=== PATIENT | female | born 1995 | race Caucasian/White ===

== ENCOUNTER 2021-04-26 15:36 | Inpatient (IN) ==
--- NOTE | 2021-04-26 15:57 | ED Telehealth Note ---
Telehealth Telehealth Options: 2-way audio and video For the duration of the visit, provider was performing the assessment from: A different facility than the patient After establishing a telemedicine visit, patient was: Patient was verified with two unique identifiers, Patient/authorized rep acknowledged consent and understanding and Gave permission to continue telehealth session Total Time Spent (minutes): 9 Impression & Plan Crohn's disease, Dehydration, Lightheadedness Note/Exam/Outcome Date of Service April 26, 2021 HPI: This is a pleasant 26-year-old female who requested evaluation via telehealth with concern for dehydration. Patient states she has been dealing with a flare of her Crohn's disease for the past 3 weeks, has been having a lot of difficulty eating and drinking and is having numerous episodes of diarrhea. The diarrhea is bloody. She is not having fevers currently. She states that she has lost 11 pounds in the past 3 weeks because of this. She does note that she has seen her GI specialist several times and has been treated with steroids for the past week without any improvement. She notes that they checked a calprotectin level today and reports that it was 2540. She did see her GI specialist this morning who told her if she felt any worse that she should return to the emergency department. She does note that she is scheduled to have a colonoscopy this Thursday in the morning, but she is not sure that she will be able to tolerate the prep for this due to how ill she is feeling. She does note that she was seen in the emergency department a few days ago and received IV fluids and IV steroids and also had CT imaging performed at that time. ED Telehealth Outcome Referred to ED for in person visit ED Visit Note This pleasant 26-year-old female requested evaluation via telehealth with concern for dehydration from a Crohn's flare. After discussing with her, it was clear that she would need to return to the emergency department to receive IV fluids and will most likely need to be admitted. The patient states that her boyfriend will bring her in shortly and she was agreeable with this. I did speak on the phone with Tk Jerry, the patient's GI specialist, who did recommend having the patient come in and be admitted. She feels the patient would benefit from treatment with IV steroids for a few days as well as IV hydration. She recommended IV Solu-Medrol 20 mg 3 times a day, clear liquid diet, and IV fluids for hydration. The patient can be evaluated Thursday morning by the primary GI team to determine if she needs colonoscopy. She also recommended repeat C. difficile and stool studies. General General: + awake, + alert and + tired Respiratory Respiratory: + normal respiratory effort Past Med/Surg History Medical History Crohn's disease Surgical History History of colonoscopy History of esophagogastroduodenoscopy (EGD) History of wisdom tooth extraction Family History Grandfather (Maternal) Diabetes Aunt Breast cancer Grandfather (Paternal) Myocardial infarction Grandmother (Paternal) Myocardial infarction Other No family history of adverse response to anesthesia Denies family history of Ovarian cancer Prostate cancer Colorectal cancer Social History Smoking Status: Never smoker Second Hand Exposure: No; Hx Alcohol Use: Yes Hx Substance Use: No Preferred Language: Icelandic Communication Ability: Effective Ice Cream Chef Required: No Beliefs That Will Affect Care: None Current Living Situation: Significant Other Feels Safe at Home: Yes Assistive Devices: None Allergies Allergies Allergy/AdvReac Type Severity Reaction Status Date / Time No Known Allergies Allergy Verified 04/22/21 15:03 Home Meds Home Medications Medication Instructions Recorded Confirmed infliximab-dyyb 100 mg intravenous 100 mg IV UD 09/26/20 04/22/21 solution (Inflectra) Discharge Plan Visit Data Chief Complaint: Telehealth ED Provider: David Stover ED Midlevel Provider: Lena Arenas Discharge Problem: Crohn's disease, Dehydration, Lightheadedness Forms Stand Alone Forms: My [employer] Prescriptions Prescriptions: No Action Inflectra 100 mg Recon Soln 100 mg IV UD RF: 0 Referrals Referrals: Stella Golden PA-C [Primary Care Provider] - Discharge Problem: Crohn's disease Qualifiers: Gastrointestinal tract location: unspecified location Digestive disease complication type: unspecified complication Qualified Code(s): K50.919 - Crohn's disease, unspecified, with unspecified complications
[2021-04-26] MEDS ORDERED: SODIUM CHLORIDE 0.9% 1000ML 1,000 ML IV SCH (17:00)
--- NOTE | 2021-04-26 17:31 | Emergency Department Note ---
Impression & Plan Crohn's disease, Dehydration, Lightheadedness, Bloody diarrhea ED Provider Note CHIEF COMPLAINT: Lightheaded, dehydrated, Crohn's flare HISTORY OF PRESENTING ILLNESS: This is a 26-year-old female who presents to the emergency department by private vehicle with complaint of feeling lightheaded and dehydrated due to poor oral intake and diarrhea from a Crohn's flare that has been ongoing for the past 3 weeks. I did evaluate the patient over telehealth and advised her to come to the ER. I also spoke with Tk Jerry with GI who felt the patient warranted admission at this point. Patient has been having bloody diarrhea for 1.5 weeks and has been unimproved after a week of oral steroid treatment. She states that the past few days she has been feeling worse, she is having anywhere from 20-25 episodes of bloody diarrhea per day and is having difficulty tolerating even fluids and feels that she has become very dehydrated and weak. She states she feels very lightheaded and thinks she will pass out when she stands up. She denies a fever or chills. She has had mild abdominal cramping that gets worse right before she has a bowel movement, she currently rates her pain a 3/10. REVIEW OF SYSTEMS: A complete 10 point review of systems was reviewed with the patient with pertinent positives and negatives as per history of present illness. All else were negative. PAST MEDICAL HISTORY: Crohn's disease, history of wisdom tooth extraction SOCIAL HISTORY: Lives at home, she denies tobacco use ALLERGIES: No known allergies PHYSICAL EXAM: CONSTITUTIONAL: Pleasant and cooperative. Nontoxic-appearing and in no acute distress. Appears dehydrated. HEENT: Normocephalic, atraumatic. NECK: Supple, full active range of motion without discomfort. RESPIRATORY: Clear to auscultation bilaterally with no wheezing, crackles, rhonchi or stridor. Equal expansion bilaterally. CARDIOVASCULAR: Regular rate and rhythm with no murmurs, rubs or gallops. Normal peripheral perfusion. No edema. GASTROINTESTINAL: Mild tenderness to palpation throughout the lower abdomen, most tender in the left lower abdomen, no rebound tenderness or guarding. Abdomen is soft, nondistended. No palpable masses or HSM. Bowel sounds present in all quadrants. No CVA tenderness bilaterally. MUSCULOSKELETAL: Full range of motion of all joints without discomfort. INTEGUMENTARY: No rash or other significant dermatologic conditions noted. NEUROLOGIC: Alert and oriented X 4 with normal affect. Normal strength and sensation in all 4 extremities. Normal speech. Normal gait observed. ED COURSE AND MEDICAL DECISION MAKING: CC: Patient presenting with complaint of dehydration, Crohn's flare DIFFERENTIAL DIAGNOSIS: Includes, but not limited to dehydration, anemia, electrolyte abnormality, Crohn's flare, failure of outpatient treatment, infectious colitis, C. difficile infection, gastroenteritis, among others. INTERPRETATION OF LABS: Mild leukocytosis, no anemia, slightly elevated platelets, neutrophilia on differential, no significant electrolyte abnormalities, normal renal function, normal liver enzymes. UA and stool studies are still pending. MEDICATION RECONCILIATION: I attest that I have personally reviewed the patient's current medication list. INITIAL VITAL SIGNS REVIEW: I reviewed the patient's initial vital signs and interpret them as follows: T: Afebrile; BP: Normotensive; HR: Mildly tachycardic; RR: Within normal limits; Pulse Ox: Within normal limits on room air. MDM SUMMARY: Patient was evaluated from the waiting room in triage room 3 due to a time of hi gh volume and acuity and long wait times. The patient was evaluated in a wheelchair, history and physical exam performed. Patient is alert and oriented, in no acute distress and nontoxic-appearing. She is afebrile. Mild tenderness to palpation throughout the lower abdomen, no acute abdomen. Orders were placed for labs, UA and urine , stool PCR panel and C. difficile toxin, stool calprotectin, IV fluid bolus for hydration. Patient discussed with Dr. Stover, who agrees with my assessment, plan, and disposition. Labs reviewed as above, noting mild leukocytosis and otherwise no significant abnormalities. I did already speak on the phone with HAIM Victor, who did feel the patient warranted admission. I spoke on the phone with Rachel Luke PA-C with the [facility] team, who agrees to evaluate the patient for admission. GI recommendations were also discussed with the hospitalist team. Patient was updated on all results and the plan for admission, she was agreeable to this plan. The patient was stable at the time of admission. The chart was completed utilizing [employer] voice recognition software. Grammatical errors, random word insertions, pronoun errors, and incomplete sentences are an occasional consequence of this system due to software l imitations, ambient noise, and hardware issues. Any formal questions or concerns about the content, text, or information contained within the body of this dictation should be directly addressed to the nurse practitioner for clarification. Past Med/Surg History Medical History Crohn's disease Surgical History History of colonoscopy History of esophagogastroduodenoscopy (EGD) History of wisdom tooth extraction Family History Grandfather (Maternal) Diabetes Aunt Breast cancer Grandfather (Paternal) Myocardial infarction Grandmother (Paternal) Myocardial infarction Other No family history of adverse response to anesthesia Denies family history of Ovarian cancer Prostate cancer Colorectal cancer Social History Smoking Status: Never smoker Second Hand Exposure: No; Hx Alcohol Use: Yes Hx Substance Use: No Preferred Language: Indian Communication Ability: Effective Supervisor Joiners Required: No Beliefs That Will Affect Care: None Current Living Situation: Significant Other Feels Safe at Home: Yes Assistive Devices: None Allergies Allergies Allergy/AdvReac Type Severity Reaction Status Date / Time No Known Allergies Allergy Verified 04/22/21 15:03 Home Meds Home Medications Medication Instructions Recorded Confirmed infliximab-dyyb 100 mg intravenous 100 mg IV UD 09/26/20 04/22/21 solution (Inflectra) Results & Data (ED) Vital Signs Vital Signs - 24 hr 04/26/21 16:58 Temperature 36.8 C Temperature Source Temporal Artery Scan Pulse Rate 94 H Respiratory Rate 18 Respiratory Effort / Characteristics Non-Labored Respiratory Depth Normal Respiratory Pattern Regular Blood Pressure 111/69 Blood Pressure Mean 83 Pulse Oximetry 98 Oxygen Delivery Method Room Air Sepsis Recent Fever Within 48 Hours No Sepsis New/Unexplained Change in Mental Status No Sepsis Action Taken by Nursing No Action Required Laboratory Data Result diagrams: 04/26/21 17:17 04/26/21 17:17 Lab Results 04/26/21 04/26/21 04/26/21 Range/Units 17:00 17:17 17:17 WBC 11.82 H (4.8-10.8) K/uL RBC 4.67 (4.2-5.4) M/uL Hgb 14.8 (12.0-16.0) g/dL Hct 42.6 (37-47) % MCV 91.2 (80-100) fL MCH 31.7 (25-34) pg MCHC 34.7 (32-36) g/dL RDW Std Deviation 41.1 (36.4-46.3) fL RDW Coeff of Galina 12.5 (11.5-14.5) % Plt Count 428 H (130-400) K/uL MPV 9.3 (7.4-10.4) fL Immature Gran % (Auto) 0.4 % Neut % (Auto) 87.6 % Lymph % (Auto) 9.6 % Grimes % (Auto) 2.3 % Eos % (Auto) 0.0 % Baso % (Auto) 0.1 % Neut # (Auto) 10.35 H (1.4-6.5) K/uL Lymph # (Auto) 1.14 L (1.2-3.4) K/uL Grimes # (Auto) 0.27 (0.11-0.59) K/uL Eos # (Auto) 0.00 (0-0.5) K/uL Baso # (Auto) 0.01 (0-0.2) K/uL Immature Gran # (Auto) 0.05 H (0.00-0.02) K/uL Sodium 142 (136-145) mmol/L Potassium 3.9 (3.5-5.1) mmol/L Chloride 109 H (98-107) mmol/L Carbon Dioxide 26 (21-32) mmol/L Anion Gap 7.0 (3-11) BUN 12 (7-18) mg/dl Creatinine 0.76 (0.6-1.2) mg/dl Est Cr Clr Drug Dosing 91.6 ml/min Est GFR ( Amer) 126.4 ml/min Est GFR (Non-Af Amer) 109.0 ml/min BUN/Creatinine Ratio 15.8 (10-20) Glucose 126 H (70-99) mg/dl Calcium 9.3 (8.5-10.1) mg/dl Total Bilirubin 0.4 (0.2-1) mg/dl AST 8 L (15-37) U/L ALT 24 (12-78) Alkaline Phosphatase 65 (45-117) U/L Total Protein 7.8 (6.4-8.2) gm/dl Albumin 4.0 (3.4-5.0) gm/dl Globulin 3.8 (2.5-4.0) gm/dl Albumin/Globulin Ratio 1.1 (0.9-2) Urine Color Yellow Urine Appearance Clear (Clear) Urine pH 5.0 (4.5-7.5) Ur Specific [place] 1.016 (1.000-1.030) Urine Protein Negative (Negative) Urine Glucose (UA) Negative (Negative) Urine Ketones Negative (Negative) Urine Blood Negative (Negative) Urine Nitrite Negative (Negative) Urine Bilirubin Negative (Negative) Urine Urobilinogen Negative (Negative) Ur Leukocyte Esterase Negative (Negative) Discharge Plan Visit Data Chief Complaint: Dehydration ED Provider: David Stover ED Midlevel Provider: Lena Arenas Discharge Problem: Crohn's disease, Dehydration, Lightheadedness, Bloody diarrhea Patient Disposition: Admitted As Inpatient Condition: Good Forms Stand Alone Forms: [facility] [place] Prescriptions Prescriptions: No Action Inflectra 100 mg Recon Soln 100 mg IV UD RF: 0 Referrals Referrals: Stella Golden PA-C [Primary Care Provider] - Discharge Problem: Crohn's disease Qualifiers: Gastrointestinal tract location: unspecified location Digestive disease complication type: unspecified complication Qualified Code(s): K50.919 - Crohn's disease, unspecified, with unspecified complications
[2021-04-26 17:34] LABS: Basophils # (auto) 0.01 K/uL (0-0.2); Basophils % (auto) 0.1 %; Hematocrit (blood only) 42.6 % (37-47); Hemoglobin 14.8 g/dL (12.0-16.0); Immature Granulocytes # (auto) 0.05 K/uL (0.00-0.02); Immature Granulocytes % (auto) 0.4 %; Lymphocytes # (auto) 1.14 K/uL (1.2-3.4); Lymphocytes % (auto) 9.6 %; Mean Corpuscular Hemoglobin 31.7 pg (25-34); Mean Corpuscular Hgb Conc 34.7 g/dL (32-36); Mean Corpuscular Volume 91.2 fL (80-100); Mean Platelet Volume 9.3 fL (7.4-10.4); Monocytes # (auto) 0.27 K/uL (0.11-0.59); Monocytes % (auto) 2.3 %; Neutrophils # (auto) 10.35 K/uL (1.4-6.5); Neutrophils % (auto) 87.6 %; Platelet Count 428 K/uL (130-400); RDW Coefficient of Variation 12.5 % (11.5-14.5); RDW Standard Deviation 41.1 fL (36.4-46.3); Red Blood Count 4.67 M/uL (4.2-5.4); White Blood Count 11.82 K/uL (4.8-10.8)
[2021-04-26 18:04] LABS: Albumin Globulin Ratio 1.1 (0.9-2); BUN Creatinine Ratio 15.8 (10-20); Bilirubin,Total 0.4 mg/dl (0.2-1); Calcium 9.3 mg/dl (8.5-10.1); Creatinine Clr Calc Pharmacy 91.6 ml/min; Est GFR (African American) 126.4 ml/min; Globulin 3.8 gm/dl (2.5-4.0); Potassium 3.9 mmol/L (3.5-5.1); Total Protein 7.8 gm/dl (6.4-8.2)
--- NOTE | 2021-04-26 19:50 | History & Physical Report ---
Date of Service April 26, 2021 Assessment & Plan (1) Diarrhea: (2) Crohn's disease: Plan: Patient is 26 y/o F with PMH Crohn's presented to ER with c/o bloody diarrhea, abdominal cramping and bloating x 3 weeks. Outpatient trial of prednisone without improvement. Negative C-diff testing outpatient. Seen in ER 04/24/[address] abd/pelvis: Wall thickening is seen in the rectum and descending colon. The proximal colon and small bowel do not demonstrate evidence of inflammation Today in ER pt afebrile, vitals stable. WBC: 11. 1L NSS ordered in ER Clear liquids IVF Solu-Medrol 20 mg 3 times daily per GI recommendations No antibiotics at this time per GI recommendations GI consult Repeat stool studies pending CBC, BMP in a.m Patient likely will have colonoscopy Thursday per GI DVT Prophylaxis SCDs Full Code as per discussion with pt Follows with Stella Golden PA-C for routine care Pt was seen and care coordinated with Dr Ta. See addendum History of Present Illness Chief Complaint: Diarrhea Primary Care Provider: Stella Golden PA-C Patient is 26 y/o F with PMH Crohn's presented to ER with c/o diarrhea x 3 weeks. Pt with ongoing abdominal bloating and pain and bloody diarrhea, up to 15 episodes diarrhea a day. Decreased appetite and poor oral intake and some nausea. She has been following with GI outpatient. Was placed on prednisone 30mg daily. 04/22/21 Prednisone increased to 40mg daily. Has had negative C-diff. Seen in ER 04/24/[address] abd/pelvis showing wall thickening of rectum and descending colon. Today feeling dizzy with standing. Denies fever/chills, diaphoresis, vomiting, NIELSEN, syncope, vision changes, neck pain, CP, SOB, orthopnea, palpitations, cough, sore throat, choking, otalgia, rhinorrhea, paresthesias, weakness, extremity weakness, extremity edema, rashes, urinary symptoms. In ER pt afebrile, vitals stable. WBC: 11. 1L NSS ordered in ER. Allergies Allergy/AdvReac Type Severity Reaction Status Date / Time No Known Allergies Allergy Verified 04/22/21 15:03 Home Medications Medication Instructions Recorded Confirmed Type dicyclomine 10 mg capsule 10 mg PO QID PRN 04/26/21 04/26/21 History infliximab-axxq 100 mg intravenous 260 mg IV UD 04/26/21 04/26/21 History solution (Avsola) Past Med/Surg History Medical History Crohn's disease Surgical History History of colonoscopy History of esophagogastroduodenoscopy (EGD) History of wisdom tooth extraction Family History Grandfather (Maternal) Diabetes Aunt Breast cancer Grandfather (Paternal) Myocardial infarction Grandmother (Paternal) Myocardial infarction Other No family history of adverse response to anesthesia Denies family history of Ovarian cancer Prostate cancer Colorectal cancer Social History Smoking Status: Never smoker Second Hand Exposure: No; Hx Alcohol Use: Yes Alcohol type: wine Hx Substance Use: No Preferred Language: Vietnamese Communication Ability: Effective Train Examiner Required: No Beliefs That Will Affect Care: None Current Living Situation: Significant Other Current Living Situation Comment: boyfriend Other Information That Helps Us Care for You: No Feels Safe at Home: Yes Safety Concerns: Feels Safe At This Time Assistive Devices: None Review of Systems Review of Systems: All systems reviewed & are unremarkable except as noted in HPI & below Physical Exam Physical Exam: General: no distress, thin female Head: normocephalic, atraumatic Eyes: conjunctiva non-injected, anicteric ENT: normal inspection external ears, nose, mucous membranes moist Neck: supple, trachea midline Lungs: clear, no respiratory distress, no wheezing/rhonchi/rales CV: RRR, no murmur, no pretibial edema Abd: normal BS, soft, +tender to palpation LLQ Ext: no cyanosis, no calf tenderness Neuro: A&O x 3, no focal deficits noted, normal affect Skin: warm, dry Results & Data Results & Data ([facility]) Vital Signs (Past 12 Hours) Vital Signs Temp Pulse Resp BP Pulse Ox 04/26/21 16:58 36.8 C 94 H 18 111/69 98 Laboratory Results Short CBC 04/26/21 Range/Units 17:17 WBC 11.82 H (4.8-10.8) K/uL Hgb 14.8 (12.0-16.0) g/dL Hct 42.6 (37-47) % Plt Count 428 H (130-400) K/uL BMP 04/26/21 17:17 Sodium 142 Potassium 3.9 Chloride 109 H Carbon Dioxide 26 BUN 12 Creatinine 0.76 Glucose 126 H Calcium 9.3 Liver Function 04/26/21 Range/Units 17:17 Total Bilirubin 0.4 (0.2-1) mg/dl AST 8 L (15-37) U/L ALT 24 (12-78) Alkaline Phosphatase 65 (45-117) U/L Albumin 4.0 (3.4-5.0) gm/dl Urine 04/26/21 Range/Units 17:00 Urine Color Yellow Urine Appearance Clear (Clear) Urine pH 5.0 (4.5-7.5) Ur Specific [place] 1.016 (1.000-1.030) Urine Protein Negative (Negative) Urine Glucose (UA) Negative (Negative) Supervising Physician Co-Signing Physician Notes Care coordinated with Raya Luke PA-C. Agree with above note. Patient seen and examined. Please refer to her notes for full details. Vital signs reviewed. Physical exam: General exam: Alert and oriented. Not in acute distress. CVS: S1 and S2 heard, regular rate and rhythm, no murmurs. RS: Clear to auscultation, no wheezing or crackles. ABD: Soft, bowel sounds present, nontender, no distention. 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 EXT: No edema, no erythema. Labs: Reviewed. Assessment and plan: 26F with history of crohn's disease having 3 weeks of abdominal pain, diarrhea , blood in stools and was getting po prednisone as out patinbet but not improving much. Started on iv Solumedrol, clears and GI consult. Stool cultures negative so far. Continue to monitor. Other diagnosis and plan of care as per Raya Luke PA-C. David atkinson MD. (1) Crohn's disease Digestive disease complication type: unspecified complication Gastrointestinal tract location: unspecified location Qualified Code(s): K50.919 - Crohn's disease, unspecified, with unspecified complications
[2021-04-26 20:25] LABS: Appearance Urine Clear (Clear); Bilirubin Urine Negative (Negative); Blood Urine Negative (Negative); Color Urine Yellow; Glucose Urine UA Negative (Negative); Ketones Urine Negative (Negative); Leukocyte Esterase Urine Negative (Negative); Nitrite Urine Negative (Negative); Protein Urine Negative (Negative); Specific Gravity Urine 1.016 (1.000-1.030); Urobilinogen Urine Negative (Negative)
[2021-04-26] MEDS ORDERED: ACETAMINOPHEN 325 MG TAB PO PRN (22:35)
[2021-04-26 23:29] LABS: Adenovirus F 40/41 PCR Not Detected (NotDetected); Astrovirus PCR Not Detected (NotDetected); Campylobacter PCR Not Detected (NotDetected); Clostridium diff Toxin A/B PCR Not Detected (NotDetected); Cryptosporidium PCR Not Detected (NotDetected); Cyclospora cayetanensis PCR Not Detected (NotDetected); Entamoeba histolytica PCR Not Detected (NotDetected); Enteroaggregative E.coli(EAEC) Not Detected (NotDetected); Enteropathogenic E.coli (EPEC) Not Detected (NotDetected); Enterotoxigenic E.coli (ETEC) Not Detected (NotDetected); Giardia lamblia PCR Not Detected (NotDetected); Norovirus GI/GII PCR Not Detected (NotDetected); Plesiomonas shigelloides PCR Not Detected (NotDetected); Rotavirus A PCR Not Detected (NotDetected); Salmonella PCR Not Detected (NotDetected); Sapovirus PCR Not Detected (NotDetected); Shiga-like Toxin E.coli (STEC) Not Detected (NotDetected); Shigella/Enteroinvasive E.coli Not Detected (NotDetected); Vibrio cholerae PCR Not Detected (NotDetected); Vibrio species PCR Not Detected (NotDetected); Yersinia enterocolitica PCR Not Detected (NotDetected)
[2021-04-26] MEDS: methylPREDNISolone 20 MG in SYRINGE 0 ML IV SCH (23:32)
[2021-04-26] MEDS: SODIUM CHLORIDE 0.9% 1000ML 1,000 ML IV SCH (23:33)
[2021-04-27] MEDS: ONDANSETRON INJ 2 MG/ML 2 ML VIAL IV PRN (01:33)
[2021-04-27 06:37] LABS: Hematocrit (blood only) 38.4 % (37-47); Mean Corpuscular Hemoglobin 31.4 pg (25-34); Mean Corpuscular Hgb Conc 33.9 g/dL (32-36); Mean Corpuscular Volume 92.8 fL (80-100); Mean Platelet Volume 9.2 fL (7.4-10.4); Platelet Count 406 K/uL (130-400); RDW Coefficient of Variation 12.4 % (11.5-14.5); Red Blood Count 4.14 M/uL (4.2-5.4); White Blood Count 11.15 K/uL (4.8-10.8)
[2021-04-27] MEDS: methylPREDNISolone 20 MG in SYRINGE 0 ML IV SCH ×3 (07:44→21:02)
[2021-04-27] MEDS: SODIUM CHLORIDE 0.9% 1000ML 1,000 ML IV SCH (09:19)
--- NOTE | 2021-04-27 15:07 | Gastrointestinal Consultation ---
Date of Consultation April 27, 2021 Assessment & Plan (1) Crohn's disease: (2) Bloody diarrhea: Continue Solumedrol 20 mg IV TID Avsola Ab and drug levels ordered as outpatient and pending Start Hydrocortisone supp 25 mg per rectum BID Clear liquid diet Bowel prep tomorrow Colonoscopy on Thursday History of Present Illness Reason for Consultation: Crohn's disease Attending Physician: Patricia Vargas MD History of Present Illness 26 yo CF who presented to the ER yesterday for flare of Crohn's disease with abdominal pain, fecal urgency, and bloody diarrhea. She did have a stool calprotectin earlier this week which returned >2500, and failed outpatient Prednisone therapy. She does note that since she switched from Inflectra to Avsola, her symptoms have worsened. She states that due to her insurance coverage, this switch was made. Since her arrival, she has been on Solumedrol 20 mg IV TID, and has noted some improvement. She notes that her BM's have slowed down, having 4-5 today, without blood. She does still have significant urgency. She denies any fevers, chills, nausea, vomiting, hematemesis, melena, hematochezia or abdominal pain at present. Stool studies collected in the ER were normal. She denies any further complaints. Allergies Allergy/AdvReac Type Severity Reaction Status Date / Time No Known Allergies Allergy Verified 04/22/21 15:03 Home Medications Medication Instructions Recorded Confirmed Type dicyclomine 10 mg capsule 10 mg PO QID PRN 04/26/21 04/26/21 History infliximab-axxq 100 mg intravenous 260 mg IV UD 04/26/21 04/26/21 History solution (Avsola) Patient History Medical History Crohn's disease Surgical History History of colonoscopy History of esophagogastroduodenoscopy (EGD) History of wisdom tooth extraction Family History Grandfather (Maternal) Diabetes Aunt Breast cancer Grandfather (Paternal) Myocardial infarction Grandmother (Paternal) Myocardial infarction Other No family history of adverse response to anesthesia Denies family history of Ovarian cancer Prostate cancer Colorectal cancer Social History Smoking Status: Never smoker Second Hand Exposure: No; Hx Alcohol Use: Yes Alcohol type: wine Hx Substance Use: No Preferred Language: Luxembourgish Communication Ability: Effective Manager E Learning Required: No Beliefs That Will Affect Care: None Current Living Situation: Significant Other Current Living Situation Comment: boyfriend Other Information That Helps Us Care for You: No Feels Safe at Home: Yes Safety Concerns: Feels Safe At This Time Assistive Devices: None Review of Systems Constitutional: as per Subjective / HPI Eyes: as per Subjective / HPI Ear, Nose, Mouth, Throat: as per Subjective / HPI Respiratory: as per Subjective / HPI Cardiovascular: as per Subjective / HPI Gastrointestinal: as per Subjective / HPI Musculoskeletal: as per Subjective / HPI Integumentary: as per Subjective / HPI Neurologic: as per Subjective / HPI Psychiatric: as per Subjective / HPI Endocrine: as per Subjective / HPI Hematologic / Lymphatic: as per Subjective / HPI Allergy / Immunological: as per Subjective / HPI Physical Exam Constitutional: WD/WN, vitals as above Eyes: + anicteric sclerae ENMT: external ear and nose normal, oropharynx normal Neck: trachea midline, no thyromegaly Respiratory: normal respiratory effort, lungs clear to auscultation Cardiovascular: RRR, no murmur, no edema Gastrointestinal (Abdomen): normal bowel sounds, soft, nontender, no hepatosplenomegaly Skin: no rashes, warm and dry Psychiatric: A+Ox3, euthymic affect Results & Data ([facility]) Vital Signs (Past 12 Hours) Vital Signs Temp Pulse Resp BP Pulse Ox 04/27/21 08:37 36.6 C 73 16 117/71 95 PG Care Time/CCT Total # of Minutes Spent Total Time Spent with Patient: Total time spent is greater than 50% in coordination of care (as documented) at patient's floor/unit and/or counseling patient: Coding Level of Care Code 77660 Office/OBS Consult Lvl 4 Diagnoses Crohn's disease K50.919 Digestive disease complication type: unspecified complication Gastrointestinal tract location: unspecified location Bloody diarrhea R19.7 (1) Crohn's disease Digestive disease complication type: unspecified complication Gastrointestinal tract location: unspecified location Qualified Code(s): K50.919 - Crohn's disease, unspecified, with unspecified complications
--- NOTE | 2021-04-27 15:24 | Hospitalist Progress Note ---
Date of Service April 27, 2021 Assessment & Plan (1) Diarrhea: (2) Crohn's disease: Plan: 26 y/o F with PMH Crohn's presented to ER with c/o bloody diarrhea, abdominal cramping and bloating x 3 weeks. Outpatient trial of prednisone without improvement. Negative C-diff testing outpatient. Seen in ER 04/24/[address] abd/pelvis: Wall thickening is seen in the rectum and descending colon. The proximal colon and small bowel do not demonstrate evidence of inflammation Continue Solu-Medrol IV 20 mg 3 times daily GI recommendations appreciated Started on hydrocortisone suppository Plan for colonoscopy on Thursday. Will need to be n.p.o. past midnight tomorrow with bowel prep DVT ppx- SCD Admission and Anticipated Discharge Date Admission Date: April 26, 2021 Subjective Patient seen and examined today. Reports some improvement since started treatment in the hospital with improvement of frequency of bowel movement. Denies any fevers, chills, nausea, vomiting, abd pain Denied dysuria, freq,urgency, hematuria Denies any chest pain, cough, shortness of breath Physical Exam Constitutional: + well hydrated; no acute distress Eyes: PERRL, conjunctivae normal, anicteric sclerae ENMT: external ear and nose normal, oropharynx normal Respiratory: normal respiratory effort, lungs clear to auscultation Cardiovascular: RRR, no murmur, no edema Gastrointestinal (Abdomen): normal bowel sounds, soft, nontender, no hepatosplenomegaly Musculoskeletal: no cyanosis or clubbing, extremities motor strength 5/5 Neurologic: PERRL, EOMI, accommodation nl, no face palsy, no dysarthria Psychiatric: A+Ox3, euthymic affect Results & Data Results & Data ([facility]) Vital Signs (Past 12 Hours) Vital Signs Temp Pulse Resp BP Pulse Ox 04/27/21 08:37 36.6 C 73 16 117/71 95 Laboratory Results Abnormal lab results 04/26/21 04/26/21 04/27/21 Range/Units 17:17 17:17 06:12 WBC 11.82 H 11.15 H (4.8-10.8) K/uL RBC 4.14 L (4.2-5.4) M/uL Plt Count 428 H 406 H (130-400) K/uL Neut # (Auto) 10.35 H (1.4-6.5) K/uL Lymph # (Auto) 1.14 L (1.2-3.4) K/uL Immature Gran # (Auto) 0.05 H (0.00-0.02) K/uL Chloride 109 H (98-107) mmol/L Glucose 126 H (70-99) mg/dl AST 8 L (15-37) U/L (1) Crohn's disease Digestive disease complication type: unspecified complication Gastrointestinal tract location: unspecified location Qualified Code(s): K50.919 - Crohn's disease, unspecified, with unspecified complications
[2021-04-27] MEDS: HYDROCORTISONE ACETATE 25 MG SUPP PR SCH (21:02)
[2021-04-28 06:30] LABS: BUN Creatinine Ratio 17.4 (10-20); Calcium 8.7 mg/dl (8.5-10.1); Creatinine Clr Calc Pharmacy 122.2 ml/min; Est GFR (African American) 149.3 ml/min; Est GFR (Non-African American) 128.8 ml/min; Potassium 4.4 mmol/L (3.5-5.1)
[2021-04-28 06:38] LABS: Hematocrit (blood only) 39.2 % (37-47); Hemoglobin 13.5 g/dL (12.0-16.0); Magnesium 2.6 mg/dl (1.8-2.4); Mean Corpuscular Hemoglobin 31.4 pg (25-34); Mean Corpuscular Hgb Conc 34.4 g/dL (32-36); Mean Corpuscular Volume 91.2 fL (80-100); Mean Platelet Volume 9.3 fL (7.4-10.4); Platelet Count 394 K/uL (130-400); RDW Coefficient of Variation 12.3 % (11.5-14.5); RDW Standard Deviation 40.7 fL (36.4-46.3); White Blood Count 18.56 K/uL (4.8-10.8)
[2021-04-28] MEDS: HYDROCORTISONE ACETATE 25 MG SUPP PR SCH ×2 (08:09→21:18)
[2021-04-28] MEDS: methylPREDNISolone 20 MG in SYRINGE 0 ML IV SCH ×3 (08:09→21:18)
[2021-04-28] MEDS ORDERED: MELATONIN 3 MG TAB PO PRN (13:24)
--- NOTE | 2021-04-28 14:17 | Hospitalist Progress Note ---
Date of Service April 28, 2021 Assessment & Plan (1) Diarrhea: (2) Crohn's disease: Plan: 26 y/o F with PMH Crohn's presented to ER with c/o bloody diarrhea, abdominal cramping and bloating x 3 weeks. Outpatient trial of prednisone without improvement. Negative C-diff testing outpatient. Seen in ER 04/24/[address] abd/pelvis: Wall thickening is seen in the rectum and descending colon. The proximal colon and small bowel do not demonstrate evidence of inflammation Continue Solu-Medrol IV 20 mg 3 times daily Continue hydrocortisone suppository Plan for colonoscopy tomorrow. N.p.o. past midnight GI recs appreciated DVT ppx- SCD Admission and Anticipated Discharge Date Admission Date: April 26, 2021 Subjective Patient seen and examined today. Reports diarrhea frequency is reduced Denies any fevers, chills, nausea, vomiting, abd pain Denied dysuria, freq,urgency, hematuria Denies any chest pain, cough, shortness of breath Physical Exam Constitutional: + well hydrated; no acute distress Eyes: PERRL, conjunctivae normal, anicteric sclerae ENMT: external ear and nose normal, oropharynx normal Respiratory: normal respiratory effort, lungs clear to auscultation Cardiovascular: RRR, no murmur, no edema Gastrointestinal (Abdomen): normal bowel sounds, soft, nontender, no hepatosplenomegaly Musculoskeletal: no cyanosis or clubbing, extremities motor strength 5/5 Neurologic: PERRL, EOMI, accommodation nl, no face palsy, no dysarthria Psychiatric: A+Ox3, euthymic affect Results & Data Results & Data ([facility]) Vital Signs (Past 12 Hours) Vital Signs Temp Pulse Resp BP Pulse Ox 04/28/21 08:26 36.8 C 67 16 109/63 97 Laboratory Results Abnormal lab results 04/28/21 04/28/21 Range/Units 05:46 05:46 WBC 18.56 H (4.8-10.8) K/uL Chloride 108 H (98-107) mmol/L Creatinine 0.57 L (0.6-1.2) mg/dl Glucose 129 H (70-99) mg/dl Magnesium 2.6 H (1.8-2.4) mg/dl (1) Crohn's disease Digestive disease complication type: unspecified complication Gastrointestinal tract location: unspecified location Qualified Code(s): K50.919 - Crohn's disease, unspecified, with unspecified complications
[2021-04-28] MEDS ORDERED: bisacodyL 5 MG TABEC PO ONE (16:00)
--- NOTE | 2021-04-28 16:50 | Gastroenterology Progress Note ---
Date of Service April 28, 2021 Assessment & Plan (1) Crohn's disease: (2) Bloody diarrhea: Plan: Bowel prep tonight NPO following bowel prep Colonoscopy in the AM Continue current therapy and supportive care [facility] to resume patient care tomorrow. Admission and Anticipated Discharge Date Admission Date: April 26, 2021 Subjective Doing slightly better today. Still with fecal urgency, diarrhea has decreased. She denies any hematochezia. Tolerating PO intake with clear liquids. Review of Systems Constitutional: as per Subjective / HPI Eyes: as per Subjective / HPI Ear, Nose, Mouth, Throat: as per Subjective / HPI Respiratory: as per Subjective / HPI Cardiovascular: as per Subjective / HPI Gastrointestinal: as per Subjective / HPI Musculoskeletal: as per Subjective / HPI Integumentary: as per Subjective / HPI Neurologic: as per Subjective / HPI Psychiatric: as per Subjective / HPI Endocrine: as per Subjective / HPI Hematologic / Lymphatic: as per Subjective / HPI Allergy / Immunological: as per Subjective / HPI Physical Exam Constitutional: WD/WN, vitals as above Eyes: + anicteric sclerae ENMT: external ear and nose normal, oropharynx normal Neck: normal visual inspection Respiratory: normal respiratory effort, lungs clear to auscultation Cardiovascular: RRR, no murmur, no edema Gastrointestinal (Abdomen): normal bowel sounds, soft, nontender, no hepatosplenomegaly Psychiatric: A+Ox3, euthymic affect Results & Data Results & Data ([facility]) Vital Signs (Past 12 Hours) Vital Signs Temp Pulse Resp BP Pulse Ox 04/28/21 16:43 36.7 C 85 16 110/78 98 04/28/21 08:26 36.8 C 67 16 109/63 97 PG Care Time/CCT Total # of Minutes Spent Total Time Spent with Patient: Total time spent is greater than 50% in coordination of care (as documented) at patient's floor/unit and/or counseling patient: Coding Level of Care Code 03437 Subseq Hosp Care Lvl 3 Diagnoses Crohn's disease K50.919 Digestive disease complication type: unspecified complication Gastrointestinal tract location: unspecified location Bloody diarrhea R19.7 (1) Crohn's disease Digestive disease complication type: unspecified complication Gastrointestinal tract location: unspecified location Qualified Code(s): K50.919 - Crohn's disease, unspecified, with unspecified complications
[2021-04-28] MEDS: ONDANSETRON INJ 2 MG/ML 2 ML VIAL IV PRN ×2 (18:14→23:44)
[2021-04-29] MEDS: HYDROCORTISONE ACETATE 25 MG SUPP PR SCH ×3 (08:11→21:31)
[2021-04-29] MEDS: methylPREDNISolone 20 MG in SYRINGE 0 ML IV SCH ×2 (08:11→10:27)
[2021-04-29] MEDS: ONDANSETRON INJ 2 MG/ML 2 ML VIAL IV PRN ×2 (08:12→21:31)
[2021-04-29 08:13] LABS: Hematocrit (blood only) 39.5 % (37-47); Hemoglobin 13.7 g/dL (12.0-16.0); Mean Corpuscular Hemoglobin 31.6 pg (25-34); Mean Corpuscular Hgb Conc 34.7 g/dL (32-36); Mean Corpuscular Volume 91.2 fL (80-100); Mean Platelet Volume 9.4 fL (7.4-10.4); Platelet Count 403 K/uL (130-400); RDW Coefficient of Variation 12.2 % (11.5-14.5); Red Blood Count 4.33 M/uL (4.2-5.4); White Blood Count 16.54 K/uL (4.8-10.8)
[2021-04-29 08:36] LABS: BUN Creatinine Ratio 26.6 (10-20); Blood Urea Nitrogen 15 mg/dl (7-18); Calcium 8.6 mg/dl (8.5-10.1); Carbon Dioxide 28 mmol/L (21-32); Creatinine Clr Calc Pharmacy 126.6 ml/min; Est GFR (African American) > 150.0 ml/min; Est GFR (Non-African American) 130.4 ml/min; Glucose 116 mg/dl (70-99)
[2021-04-29 08:40] LABS: Chloride 108 mmol/L (98-107); Potassium 4.1 mmol/L (3.5-5.1); Sodium 140 mmol/L (136-145)
--- NOTE | 2021-04-29 08:48 | History & Physical Bridge Note ---
Date of Service April 29, 2021 History & Physical Bridge Note I have examined the patient, reviewed the History & Physical and in the interval since the performance of the History & Physical I have noted the following changes of clinical significance: no changes noted. We are planning to do a colonoscopy for evaluation of inflammatory bowel disease. I discussed the risks of the procedure with the patient include bleeding, infection perforation and pain.
[2021-04-29] MEDS ORDERED: ATROPINE SULFATE 0.1 MG/ML 10ML SYR IV PRN (08:49)
[2021-04-29] MEDS ORDERED: ePHEDrine sulfate 50 MG/ML AMP IV PRN (08:49)
--- NOTE | 2021-04-29 08:50 | Anesthesiology Consultation ---
Date of Service April 29, 2021 Assessment & Plan Chart Review Chart Review: Acceptable Risk for Surgery and Patient NOT seen in Pre Admission Testing Consults Requested none ASA ASA2 Proposed Anesthesia Anesthesia Type: MAC Risk / Benefits Reviewed With: PT / POA / Parent / Guardian, Accepts Plan and Informed Consent Obtained Additional Comments: covid test negative History Surgery Operation Date: 04/29/21 16:45 Proposed Procedures p Colonoscopy Dr Dwaine Isidro, DO Height/Weight Height: 5 ft 5 in Weight: 51.3 kg Allergies Allergy/AdvReac Type Severity Reaction Status Date / Time No Known Allergies Allergy Verified 04/22/21 15:03 Medications Home Medications Medication Instructions Recorded Confirmed Last Taken dicyclomine 10 mg capsule 10 mg PO QID PRN 04/26/21 04/26/21 Unknown infliximab-axxq 100 mg intravenous 260 mg IV UD 04/26/21 04/26/21 03/25/21 solution ([place]) Active Medications Generic Name Dose Route Start Last Admin Trade Name Freq PRN Reason Stop Dose Admin Acetaminophen 650 mg 04/26/21 22:35 04/27/21 03:45 Acetaminophen 325 Mg Tab PO 05/26/21 22:34 650 mg Q4H PRN Administration Pain or Fever Hydrocortisone 25 mg 04/27/21 21:00 04/28/21 21:18 Hydrocortisone Acetate 25 Mg Supp MT 05/27/21 20:59 25 mg BID SANTA Administration Methylprednisolone 20 mg/ 0.32 mls @ 1.5 mls/min 04/26/21 21:00 04/28/21 21:18 Syringe IV 05/26/21 20:59 1.5 mls/min TID SANTA Administration Ondansetron HCl 4 mg 04/26/21 22:35 04/28/21 23:44 Ondansetron Inj 2 Mg/Ml 2 Ml Vial IV 05/26/21 22:34 4 mg Q6H PRN Administration Nausea NPO Date Last Intake of Fluids: 04/29/21 Time Last Intake of Fluids: 02:00 Date Last Intake of Solids: 04/26/21 Time Last Intake of Solids: 18:00 Past Medical History Medical History Crohn's disease Exercise / Class Metabolic Activity II 4-5 Yardwork/Stairs/Walk up hill Past Family History Family History Grandfather (Maternal) Diabetes Aunt Breast cancer Grandfather (Paternal) Myocardial infarction Grandmother (Paternal) Myocardial infarction Other No family history of adverse response to anesthesia Denies family history of Ovarian cancer Prostate cancer Colorectal cancer Past Surgical History Surgical History History of colonoscopy History of esophagogastroduodenoscopy (EGD) History of wisdom tooth extraction Past Anesthesia History No Hx of Anesthesia Complications and No Family Hx of Anesthesia Complications History of PONV No Hx of PONV and No Hx of Motion Sickness Social History Smoking Status: Never smoker Hx Alcohol Use: Yes Alcohol type: wine alcohol intake frequency: a few times a month Hx Substance Use: No substance use type: does not use Physical Exam Vital Signs Last Vital Signs Temp 36.8 C 04/29/21 08:04 Pulse 73 04/29/21 08:04 Resp 12 04/29/21 08:04 BP 107/71 04/29/21 08:04 Pulse Ox 98 04/29/21 08:04 Constitutional + cachectic ENMT Mouth: no dentition abnormality Thyromental Distance: < 3.5 Finger Breadths Mallampati Class: II Neck normal visual inspection and trachea midline; neck extension not limited Respiratory normal respiratory effort Auscultation: lungs clear to auscultation bilaterally Cardiovascular Rate/Rhythm: regular rate and regular rhythm Heart Sounds: no murmur Vessels: no carotid bruit Musculoskeletal Spine: normal cervical ROM Extremities: extremities normal to inspection Skin no rashes Neurologic moves all extremities Motor/Sensory: no sensory deficit Psychiatric Orientation: alert and oriented x 3 Testing Laboratory Results 04/29/21 07:07 04/29/21 07:07 Urine Color Yellow 04/26/21 17:00 Urine Appearance Clear (Clear) 04/26/21 17:00 Urine pH 5.0 (4.5-7.5) 04/26/21 17:00 Ur Specific [place] 1.016 (1.000-1.030) 04/26/21 17:00 Urine Protein Negative (Negative) 04/26/21 17:00 Urine Glucose (UA) Negative (Negative) 04/26/21 17:00 Urine Ketones Negative (Negative) 04/26/21 17:00 Urine Nitrite Negative (Negative) 04/26/21 17:00 Ur Leukocyte Esterase Negative (Negative) 04/26/21 17:00 04/26/21 17:00 POC Ur Test Pending
[2021-04-29] MEDS ORDERED: MIDAZOLAM HCL 1 MG/ML 2ML VIAL ONE (08:53)
[2021-04-29] MEDS ORDERED: PROPOFOL IV EMULSION 10 MG/ML 20 ML VIAL IV ONE (08:53)
[2021-04-29] MEDS ORDERED: fentaNYL citrate 100 MCG/2 ML VIAL ONE (08:53)
[2021-04-29] MEDS ORDERED: ONDANSETRON INJ 2 MG/ML 2 ML VIAL ONE (09:29)
--- NOTE | 2021-04-29 09:50 | GI REPORT ---
Patient Name: Lisseth Sutton Procedure Date: 04/29/2021 8:49 AM Date of : 1995 Admit Type: Inpatient Age: 26 Gender: Female Attending MD: Artemio Isidro DO Procedure: Colonoscopy Providers: Artemio Isidro DO Referring MD: Marina Victor DO Indications: Hematochezia, Personal history of Crohn's disease Medicines: Monitored Anesthesia Care Complications: No immediate complications. Estimated blood loss: Minimal. Estimated Blood Loss: Estimated blood loss was minimal. Procedure: Pre-Anesthesia Assessment: - Prior to the procedure, a History and Physical was performed, and patient medications, allergies and sensitivities were reviewed. The patient's tolerance of previous anesthesia was reviewed. - The risks and benefits of the procedure and the sedation options and risks were discussed with the patient. All questions were answered and informed consent was obtained. - Patient identification and proposed procedure were verified prior to the procedure by the physician, the nurse and the spa associate. The procedure was verified in the procedure room. - Pre-procedure physical examination revealed no contraindications to sedation. - ASA Grade Assessment: II - A patient with mild systemic disease. - After reviewing the risks and benefits, the patient was deemed in satisfactory condition to undergo the procedure. - The anesthesia plan was to use monitored anesthesia care (MAC). - Immediately prior to administration of medications, the patient was re-assessed for adequacy to receive sedatives. - The heart rate, respiratory rate, oxygen saturations, blood pressure, adequacy of pulmonary ventilation, and response to care were monitored throughout the procedure. - The physical status of the patient was re-assessed after the procedure. After I obtained informed consent, the scope was passed under direct vision. Throughout the procedure, the patient's blood pressure, pulse, and oxygen saturations were monitored continuously. The Colonoscope was introduced through the anus and advanced to the terminal ileum. The colonoscopy was performed without difficulty. The patient tolerated the procedure well. The quality of the bowel preparation was good. Findings: The perianal and digital rectal examinations were normal. Pertinent negatives include normal sphincter tone. The terminal ileum appeared normal. The ascending colon and cecum appeared normal. Biopsies were taken with a cold forceps for histology. Estimated blood loss was minimal. The Simple Endoscopic Score for Crohn's Disease was determined based on the endoscopic appearance of the mucosa in the following segments: - Ileum: Findings include no ulcers present, no ulcerated surfaces, no affected surfaces and no narrowings. Segment score: 0. - Right Colon: Findings include no ulcers present, no ulcerated surfaces, no affected surfaces and no narrowings. Segment score: 0. - Transverse Colon: Findings include aphthous ulcers less than 0.5 cm in size, no ulcerated surfaces, less than 50% of surfaces affected and no narrowings. Segment score: 2. - Left Colon: Findings include aphthous ulcers less than 0.5 cm in size, less than 10% ulcerated surfaces, 50-75% of surfaces affected and no narrowings. Segment score: 4. - Rectum: Findings include aphthous ulcers less than 0.5 cm in size, less than 10% ulcerated surfaces, 50-75% of surfaces affected and no narrowings. Segment score: 4. - Total SES-CD aggregate score: 10. Biopsies were taken with a cold forceps for histology from the transverse colon, left colon and rectum. Estimated blood loss was minimal. Impression: - The examined portion of the ileum was normal. - The ascending colon and cecum are normal. Biopsied. - Simple Endoscopic Score for Crohn's Disease: 10, mucosal inflammatory changes consistent with Crohn's disease. Biopsied. Recommendation: - The patient will be observed post-procedure, until all discharge criteria are met. - Advance diet as tolerated today. - Await pathology results. - Return to GI clinic at appointment to be scheduled. - Transition to Prednisone 40 mg per day for 2 weeks, then 30 mg per day for 1 week, then 20 mg per day for 1 week then 10 mg per day for 1 week, then 5 mg per day for 1 week. - Patient may benefit from addition to a biologic (will defer to the patient's regular GI provider). Artemio Isidro D.O. Artemio Isidro, 04/29/2021 9:49:54 AM This report has been signed electronically. Note Initiated On: 04/29/2021 8:49 AM Number of Addenda: 0 I attest to the content of the Intraoperative Record and orders documented therein, exceptions below {[id number]}
--- NOTE | 2021-04-29 09:55 | Anesthesiology Progress Note ---
Date of Service April 29, 2021 Anesthesia Post Procedure Vital Signs Vital Signs: Temp Pulse Resp BP Pulse Ox 04/29/21 08:41 36.8 C 72 18 123/75 100 04/29/21 08:04 36.8 C 73 12 107/71 98 04/28/21 22:08 36.9 C 70 16 107/69 99 04/28/21 16:43 36.7 C 85 16 110/78 98 Pain Intensity Abdomen: Pain Intensity: 6 Transfer of Care Handoff Completed per policy Notes Mental Status: alert / awake / arousable Patient Amnestic to Procedure: Yes Nausea / Vomiting: adequately controlled Pain: adequately controlled Airway Patency, RR, SpO2: stable & adequate BP & HR: stable & adequate Hydration State: stable & adequate Anesthetic Complications: no major complications apparent
--- NOTE | 2021-04-29 09:57 | Communication Note ---
Date of Service: April 29, 2021 The patient underwent colonoscopy this morning. It was notable for evidence of inflammatory changes within the transverse colon descending colon and re ctosigmoid colon. 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 As the patient is presently on a bio similar I would suggest a transition to Humira as an outpatient. Recommendations advance diet as tolerated Prednisone taper, 40 mg daily for 1 week, 30 mg daily for 1 week, 20 mg daily for 1 week, 10 mg daily for 1 week, then 5 mg daily for 1 week We will have the patient should follow-up with her regular GI provider to discuss a transition to Humira. She will likely need repeat screening for tuberculosis and hepatitis B for insurance preauthorization
[2021-04-29] MEDS: predniSONE 20 MG TAB PO SCH (13:35)
--- NOTE | 2021-04-29 14:09 | Hospitalist Progress Note ---
Date of Service April 29, 2021 Assessment & Plan (1) Diarrhea: (2) Crohn's disease: Plan: 26 y/o F with PMH Crohn's presented to ER with c/o bloody diarrhea, abdominal cramping and bloating x 3 weeks. Outpatient trial of prednisone without improvement. Negative C-diff testing outpatient. Seen in ER 04/24/[address] abd/pelvis: Wall thickening is seen in the rectum and descending colon. The proximal colon and small bowel do not demonstrate evidence of inflammation S/p colonoscopy 04/29/21 - notable for evidence of inflammatory changes within the transverse colon descending colon and rectosigmoid colon Currently on Solu-Medrol 20 mg 3 times daily - will transition to prednisone taper per GI Clear liquids, advance as tolerated Will need outpatient follow-up with GI for possible transition to Humira Continue hydrocortisone suppository DVT ppx- SCD Admission and Anticipated Discharge Date Admission Date: April 26, 2021 Supervising Physician Co-Signing Physician Notes 26-year-old female with a 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 Outpatient prednisone trial without improvement. She is status post colonoscopy this morning which was normal. She is being transitioned from IV Solu-Medrol to prednisone taper per GI recommendations. She is also taking clear liquids after not eating well for the last week to 2 weeks. Will monitor her overnight as she makes this transition to food and oral prednisone. Outpatient follow-up with GI for transition to Humira as a consideration. Physical exam reveals a hemodynamically stable and afebrile female in no acute distress. She is well- nourished well-developed with a soft, nontender, nondistended abdomen. Heart and lung exam is within normal limits. Patient is euvolemic without peripheral edema. DO Richard Subjective Patient seen and examined. Follow-up for Crohn's flare. S/p colonoscopy this morning. Reports she is feeling well. Diarrhea improving, no further blood in stools. Denies abdominal pain, nausea. Eager to have a diet today. Denies chest pain and shortness of breath. Review of Systems Review of Systems: ROS per HPI, all other systems reviewed and negative Physical Exam Constitutional: + thin; no acute distress Respiratory: normal respiratory effort, lungs clear to auscultation Cardiovascular: Rate/Rhythm: regular rate and regular rhythm Vessels: normal peripheral pulses Extremities: no edema Gastrointestinal (Abdomen): Inspection/Auscultation: abdomen not distended Percussion/Palpation: abdomen soft; abdomen nontender Skin: no rashes, warm and dry Neurologic: no focal motor deficits Psychiatric: A+Ox3, euthymic affect Results & Data Results & Data ([facility]) Vital Signs (Past 12 Hours) Vital Signs Temp Pulse Resp BP Pulse Ox 04/29/21 13:36 36.7 C 90 16 111/77 98 04/29/21 12:30 36.4 C L 75 16 109/70 95 04/29/21 11:30 36.4 C L 62 16 102/64 92 04/29/21 10:58 36.3 C L 71 16 111/75 100 04/29/21 10:24 36.7 C 94 H 18 119/80 100 04/29/21 09:59 69 14 115/78 97 04/29/21 09:44 72 14 114/79 100 04/29/21 08:41 36.8 C 72 18 123/75 100 04/29/21 08:04 36.8 C 73 12 107/71 98 Laboratory Results Short CBC 04/29/21 Range/Units 07:07 WBC 16.54 H (4.8-10.8) K/uL Hgb 13.7 (12.0-16.0) g/dL Hct 39.5 (37-47) % Plt Count 403 H (130-400) K/uL BMP 04/29/21 07:07 Sodium 140 Potassium 4.1 Chloride 108 H Carbon Dioxide 28 BUN 15 Creatinine 0.55 L Glucose 116 H Calcium 8.6 (1) Crohn's disease Digestive disease complication type: unspecified complication G astrointestinal tract location: unspecified location Qualified Code(s): K50.919 - Crohn's disease, unspecified, with unspecified complications
[2021-04-30 06:54] LABS: Hemoglobin 13.8 g/dL (12.0-16.0); Mean Corpuscular Hemoglobin 31.4 pg (25-34); Mean Corpuscular Hgb Conc 34.5 g/dL (32-36); Mean Corpuscular Volume 91.1 fL (80-100); Mean Platelet Volume 9.5 fL (7.4-10.4); Platelet Count 385 K/uL (130-400); RDW Coefficient of Variation 12.2 % (11.5-14.5); RDW Standard Deviation 40.7 fL (36.4-46.3); Red Blood Count 4.39 M/uL (4.2-5.4); White Blood Count 17.73 K/uL (4.8-10.8)
[2021-04-30 07:28] LABS: BUN Creatinine Ratio 21.5 (10-20); Calcium 8.4 mg/dl (8.5-10.1); Creatinine Clr Calc Pharmacy 103.9 ml/min; Est GFR (African American) 141.6 ml/min; Est GFR (Non-African American) 122.2 ml/min; Potassium 3.7 mmol/L (3.5-5.1)
[2021-04-30] MEDS: HYDROCORTISONE ACETATE 25 MG SUPP PR SCH (07:54)
[2021-04-30] MEDS: predniSONE 20 MG TAB PO SCH (07:55)
[2021-04-30] MEDS: ONDANSETRON INJ 2 MG/ML 2 ML VIAL IV PRN (07:55)
--- NOTE | 2021-04-30 09:21 | Communication Note ---
Date of Service: April 30, 2021 Pt was seen and evaluated, chart reviewed. Colonoscopy reviewed. C.diff negative. Feeling better. No abd pain. Diarrhea improving. No rectal bleeding. N o black stools. Tolerating advancing diet. Would continue low residue diet as tolerated. She is hesitant to start a biologic. Recommend he follows up with his outpatient provider for escalation of therapy.
--- NOTE | 2021-04-30 17:54 | Discharge Summary ---
Date of Service April 30, 2021 Admission HPI Per Admitting Provider Patient is 26 y/o F with PMH Crohn's presented to ER with c/o diarrhea x 3 weeks. Pt with ongoing abdominal bloating and pain and bloody diarrhea, up to 15 episodes diarrhea a day. Decreased appetite and poor oral intake and some nausea. She has been following with GI outpatient. Was placed on prednisone 30mg daily. 04/22/21 Prednisone increased to 40mg daily. Has had negative C-diff. Seen in ER 04/24/[address] abd/pelvis showing wall thickening of rectum and descending colon. Today feeling dizzy with standing. Denies fever/chills, diaphoresis, vomiting, NIELSEN, syncope, vision changes, neck pain, CP, SOB, orthopnea, palpitations, cough, sore throat, choking, otalgia, rhinorrhea, paresthesias, weakness, extremity weakness, extremity edema, rashes, urinary symptoms. In ER pt afebrile, vitals stable. WBC: 11. 1L NSS ordered in ER. Admission Exam Per Admitting Provider General: no distress, thin female Head: normocephalic, atraumatic Eyes: conjunctiva non-injected, anicteric ENT: normal inspection external ears, nose, mucous membranes moist Neck: supple, trachea midline Lungs: clear, no respiratory distress, no wheezing/rhonchi/rales CV: RRR, no murmur, no pretibial edema Abd: normal BS, soft, +tender to palpation LLQ Ext: no cyanosis, no calf tenderness Neuro: A&O x 3, no focal deficits noted, normal affect Skin: warm, dry Principal Diagnosis Crohn's flare Discharge Exam Constitutional WD/WN, vitals as above Respiratory normal respiratory effort, lungs clear to auscultation Cardiovascular Rate/Rhythm: regular rate and regular rhythm Extremities: no edema Gastrointestinal (Abdomen) Inspection/Auscultation: abdomen not distended Percussion/Palpation: abdomen soft; abdomen nontender Skin no rashes, warm and dry Neurologic no focal motor deficits Psychiatric A+Ox3, euthymic affect Discharge Data Allergies Allergy/AdvReac Type Severity Reaction Status Date / Time No Known Allergies Allergy Verified 04/22/21 15:03 Consultations GI Procedures Performed Operation Date: 04/29/21 16:45 Actual Procedures p Colonoscopy Biopsy Cytology - Artemio Isidro DO Ordered Studies 04/24/2021 CT ABD/pelvis IMPRESSION: Wall thickening is seen in the rectum and descending colon. The proximal colon and small bowel do not demonstrate evidence of inflammation. Hospital Course (1) Diarrhea: (2) Crohn's disease: 26 y/o F with PMH Crohn's presented to ER with c/o bloody diarrhea, abdominal cramping and bloating x 3 weeks. Outpatient trial of prednisone withou t improvement. Negative C-diff testing outpatient. Seen in ER 04/24/[address] abd/pelvis: Wall thickening is seen in the rectum and descending colon. The proximal colon and small bowel do not demonstrate evidence of inflammation S/p colonoscopy 04/29/21 - notable for evidence of inflammatory changes within the transverse colon descending colon and rectosigmoid colon Received Solu-Medrol 20 mg 3 times daily and hydrocortisone suppositories while admitted --> transition to prolonged prednisone taper per GI Currently on Solu-Medrol 20 mg 3 times daily - will transition to prednisone taper per GI Patient's diet was advanced and she was tolerating a low fiber, regular diet on the day of discharge. Will need outpatient follow-up with GI for possible transition to Humira Total Time Total Time Spent Total Time Spent (In Minutes): 35 Discharge Plan Discharge Items Patient Disposition: Home - Self-Care Reason For Visit: [place] FLARE Discharge Diagnosis: Crohn's Flare Condition on Discharge: Good Activity: Resume your previous activity Non-emergency contact: Primary Care Provider and [employer] Call non-emergency contact if: you have any medication questions, your symptoms worsen, your pain is not controlled and you have a fever Follow-up/Referrals: Marina Manning DO [Physician] - 05/15/21 3:00 pm (Date & Time 05/15/2021 3:00 PM Provider Marina Manning DO Department Gastroenterology, [facility] ) Stella Golden PA-C [Primary Care Provider] - 05/06/21 11:20 am (Date & Time 05/06/2021 11:20 AM Provider Jun Pena MD Department [facility] ) Diet: Low Fiber Addtl Attending Provider Instructions: You were admitted to the hospital for a flare of Crohn's disease. You had a colonoscopy that showed evidence of inflammatory changes within the transverse colon descending colon and rectosigmoid colon. GI is recommending a prednisone taper as follows: 40 mg daily for 1 week, 30 mg daily for 1 week, 20 mg daily for 1 week, 10 mg daily for 1 week, then 5 mg daily for 1 week Please keep follow up appointment with GI regarding starting Humira. Follow up appointment has been made for you for your PCP. It was a pleasure taking care of you. If you need to reach a member of [facility] Hospitalist team at [facility], please call [phone]. KATHY Daugherty Pending Studies at Discharge: No Stand-Alone Forms: My [facility] Medications and DC Order Prescriptions: New prednisone 20 mg Tablet 40 mg PO DAILY Qty: 33 RF: 0 ondansetron 4 mg tablet,disintegrating 4 mg PO Q8H PRN (Reason: nausea and vomiting) Qty: 10 RF: 0 Continued Avsola 100 mg Recon Soln 260 mg IV UD RF: 0 dicyclomine 10 mg Capsule 10 mg PO QID PRN (Reason: Abdominal Pain) RF: 0 Discharge Orders: Discharge Order (Routine); Ordered 04/30/21 Ordered By: Lisseth Jean/Other Patient Handouts: Low-Fiber Diet Admission Data Admit Date/Time: 04/26/21 20:07 Attending Provider: Monika Ramos Admit Provider: David Ta Primary Care Provider: Stella Golden Other Providers: David Ta ; Deric Myles Other Interventions: Discharge Summary Assessment (RN) Last Done: 04/30/21 15:13 Supervising Physician Co-Signing Physician Notes I have seen and examined the patient and have discussed the case with the provider above. I agree with the assessment and plan as stated. 26 yo patient with inflammatory bowel disease here with breakthrough flare after several years of uninterrupted calm on current therapy. Improved with solumedrol and she was monitored after change to prednisone, tolerating at least two meals prior to discharge without issue. Abdomen was benign on discharge exam and on day of discharge she was mentating and ambulating at baseline and tolerating PO. She was sent home in stable condition with close primary care followup recommended. She will follow up with GI to determine if she will go on a new biologic such as Humira. DO Richard
--- NOTE | 2021-05-13 08:58 | Coding Query ---
BMI To promote full compliance with coding requirements relating to patient care, physician participation is requested in all cases of flat bed operator uncertainty. Please assist us with the question(s) below: Please place an X within the parenthesis (x). If other, please document: BMI 18.8 was documented in this record for this patient. If the BMI is significant, please check the box that provides a more specific associated diagnosis: ( ) Overweight/Obese ( ) Obesity ( ) Morbid obesity ( ) Obesity Hypoventilation Syndrome (OHS) (x ) Heathy weight, not significant ( ) Underweight/Thin ( ) Other, please specify Thank you Amanda WEI
== END 2021-04-30 17:00 | disposition home or self-care (01) | DRG 387 ==
LOC: ED 15:36 → SUATTDRO 20:07 → 3E 20:07